=== PATIENT | female | born 1970 | race Caucasian/White ===

== ENCOUNTER → 2016-11-11 | Outpatient (CLI) | payer BC, MEDICARE ==
[~2016-11-11] MED LIST: ALBU8.5H INH; CEPH-583 PO; CHOL500050 PO; ESTR1PAT33 TOP; FLUT16SP TOP; FLUT1DIS3 ORAL INH; HYDR12.54 PO; LEVO88TA7 PO; LIDO35.4 TOP; OMEP40CA30 PO; OXYC15TA PO; [UNRECOGNIZED DRUG - CODE] PO; [UNRECOGNIZED DRUG - CODE] PO
== END ==
LOC: IMA 12:32
PROVIDERS: ATTEND Orthopaedic Surgery
DX: M81.0 Age-related osteoporosis without current pathological fracture (principal); M85.89 Other specified disorders of bone density and structure, multiple sites; M06.9 Rheumatoid arthritis, unspecified; Z72.0 Tobacco use; Z87.828 Personal history of other (healed) physical injury and trauma; Z90.722 Acquired absence of ovaries, bilateral

== ENCOUNTER 2016-11-29 19:59 | Emergency (ER) | payer BC, MEDICARE ==
[~2016-11-29] VITALS: Ht 170.2 cm; Wt 70.8 kg
--- OUTSIDE RECORDS SUMMARY | 2016-11-29 20:02 | XMS REPORT ---
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 48572118 Problem Osteopenia 733.90 Active 253975047 Problem Postsurgical hypothyroidism E89.0 Active 09615146 Problem Malignant neoplasm of thyroid gland C73 Active 653945605 Assessment Vitamin D deficiency E55.9 Oct, Active 28526867 Problem Premature menopause 256.31 Inactive 729367172 Problem Irritable bowel syndrome 564.1 Inactive 63840754 Problem Other symptoms involving digestive system 787.99 Inactive 336177329 Problem Abnormal feces 787.7 Inactive 781538483 Problem Nonspecific abnormal results of thyroid function study 794.5 Inactive 153276040 Problem Unspecified disorder of stomach and duodenum 537.9 Inactive Problem Other diseases of lung, not elsewhere classified 518.89 Inactive 41258621 ALLERGIES Unknown Allergies SOCIAL HISTORY No smoking Hx information available PLAN OF CARE VITAL SIGNS MEDICATIONS Medication Instructions Dosage Frequency Start Date End Date Duration Status Vitamin D High Potency 1000 UNIT Orally Once a day 1 capsule 24h Oct, 30 day(s) Active RESULTS No Results PROCEDURES No Known procedures IMMUNIZATIONS No Known Immunizations
--- OUTSIDE RECORDS SUMMARY | 2016-11-29 20:02 | XMS REPORT ---
Author Author [facility] Address [address] [id number] Care Team Providers Care Clarification Operator Name Role Phone Mario Ramos Unavailable [phone] PROBLEMS Type Condition ICD9-CM Code SYT15-FT Code Onset Dates Condition Status SNOMED Code Problem Other diseases of lung, not elsewhere classified 518.89 Inactive 79151488 Problem Unspecified constipation 564.00 Inactive 49750814 Problem Unspecified anemia 285.9 Inactive 813658913 Problem Postsurgical hypothyroidism E89.0 Active 96738677 Problem Malignant neoplasm of thyroid gland C73 Active 317008960 Problem Osteopenia 733.90 Active 540766111 Problem Disorder of bone and cartilage, unspecified 733.90 Active 37902232 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 68516904 Problem Vitamin D deficiency E55.9 Active 75616631 Assessment Postsurgical hypothyroidism E89.0 Jul, Active 45728281 Problem Unspecified disorder of stomach and duodenum 537.9 Inactive Problem Irritable bowel syndrome 564.1 Inactive 08598964 Problem Premature menopause 256.31 Inactive 133585201 Problem Other symptoms involving digestive system 787.99 Inactive 866651048 Problem Abnormal feces 787.7 Inactive 568996114 Problem Nonspecific abnormal results of thyroid function study 794.5 Inactive 344525614 ALLERGIES Unknown Allergies SOCIAL HISTORY No smoking Hx information available PLAN OF CARE VITAL SIGNS MEDICATIONS Medication Instructions Dosage Frequency Start Date End Date Duration Status Advair Diskus 250-50 MCG/DOSE Inhalation Twice a day 1 puff 12h Active Caltrate 600 1500 MG Orally Twice a day 1 tablet 12h Active Vitamin D (Ergocalciferol) 50,000 TAKE ONE CAPSULE BY MOUTH TWO TIMES WEEKLY Feb, 30 Active Lorazepam 2 MG Oral Three times daily 1 tablet as needed Active Synthroid 125 MCG Orally Once a day 1 tablet on an empty stomach in the morning 24h 30 days Active Percocet 10-325 MG Oral 2 tabs every 4 hrs as needed 0 Active Estradiol 0.5 MG Orally Once a day 1 tablet 24h Active Lidoderm 5 % Active Omeprazole 20 MG Orally Two times daily 1 capsules Active ProAir HFA 108 (90 Base) MCG/ACT Inhalation every 4 hrs 2 puffs as needed 4h Active Ibuprofen 200 MG Orally Two times daily 3 tablet as needed Active Voltaren 1 % Active RESULTS No Results PROCEDURES No Known procedures IMMUNIZATIONS No Known Immunizations
--- OUTSIDE RECORDS SUMMARY | 2016-11-29 20:02 | XMS REPORT ---
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 91673589 Problem Osteopenia 733.90 Active 829654873 Problem Postsurgical hypothyroidism E89.0 Active 84185197 Problem Malignant neoplasm of thyroid gland C73 Active 705768090 Assessment Vitamin D deficiency E55.9 Oct, Active 30837686 Problem Premature menopause 256.31 Inactive 734182183 Problem Irritable bowel syndrome 564.1 Inactive 41420348 Problem Other symptoms involving digestive system 787.99 Inactive 529553275 Problem Abnormal feces 787.7 Inactive 562400413 Problem Nonspecific abnormal results of thyroid function study 794.5 Inactive 882831471 Problem Unspecified disorder of stomach and duodenum 537.9 Inactive Problem Other diseases of lung, not elsewhere classified 518.89 Inactive 79992564 ALLERGIES Unknown Allergies SOCIAL HISTORY No smoking Hx information available PLAN OF CARE Activity Details Pending Test VITAMIN D, [address], [place] [address] ,Reason: VITAL SIGNS MEDICATIONS Unknown Medications RESULTS No Results PROCEDURES Procedure Date Ordered Related Diagnosis Body Site ASSAY OF VITAMIN D October 30, 2016 IMMUNIZATIONS No Known Immunizations
--- OUTSIDE RECORDS SUMMARY | 2016-11-29 20:03 | XMS REPORT ---
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 93592875 Problem Osteopenia 733.90 Active 842783129 Problem Postsurgical hypothyroidism E89.0 Active 14725040 Problem Malignant neoplasm of thyroid gland C73 Active 040644194 Assessment Thyroid nodule E04.1 Oct, Active 594730008 Problem Premature menopause 256.31 Inactive 890837235 Assessment Vitamin D deficiency, unspecified E55.9 Oct, Active 56240260 Problem Irritable bowel syndrome 564.1 Inactive 77242945 Problem Other symptoms involving digestive system 787.99 Inactive 605385453 Problem Abnormal feces 787.7 Inactive 981685407 Problem Nonspecific abnormal results of thyroid function study 794.5 Inactive 644245788 Problem Unspecified disorder of stomach and duodenum 537.9 Inactive Problem Other diseases of lung, not elsewhere classified 518.89 Inactive 02645460 ALLERGIES Unknown Allergies SOCIAL HISTORY No smoking Hx information available PLAN OF CARE Activity Details Pending Test T4, FREE 07061 Pending Test TSH 55820 ,Reason: VITAL SIGNS MEDICATIONS Unknown Medications RESULTS No Results PROCEDURES Procedure Date Ordered Related Diagnosis Body Site ASSAY THYROID STIM HORMONE October 30, 2016 ASSAY OF FREE THYROXINE October 30, 2016 IMMUNIZATIONS No Known Immunizations
--- OUTSIDE RECORDS SUMMARY | 2016-11-29 20:03 | XMS REPORT ---
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 95276233 Problem Osteopenia 733.90 Active 928791203 Problem Postsurgical hypothyroidism E89.0 Active 35086366 Problem Malignant neoplasm of thyroid gland C73 Active 234576790 Problem Premature menopause 256.31 Inactive 220099102 Problem Irritable bowel syndrome 564.1 Inactive 07321214 Problem Other symptoms involving digestive system 787.99 Inactive 860806221 Problem Abnormal feces 787.7 Inactive 554190256 Problem Nonspecific abnormal results of thyroid function study 794.5 Inactive 453086507 Problem Unspecified disorder of stomach and duodenum 537.9 Inactive Problem Other diseases of lung, not elsewhere classified 518.89 Inactive 76125775 ALLERGIES Unknown Allergies SOCIAL HISTORY No smoking Hx information available PLAN OF CARE VITAL SIGNS MEDICATIONS Unknown Medications RESULTS No Results PROCEDURES No Known procedures IMMUNIZATIONS No Known Immunizations
--- OUTSIDE RECORDS SUMMARY | 2016-11-29 20:03 | XMS REPORT ---
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 54347698 Problem Osteopenia 733.90 Active 298109313 Problem Postsurgical hypothyroidism E89.0 Active 56236377 Problem Malignant neoplasm of thyroid gland C73 Active 175438824 Assessment Vitamin D deficiency E55.9 Oct, Active 42595888 Problem Premature menopause 256.31 Inactive 166226723 Problem Irritable bowel syndrome 564.1 Inactive 22647670 Problem Other symptoms involving digestive system 787.99 Inactive 615551336 Problem Abnormal feces 787.7 Inactive 377463241 Problem Nonspecific abnormal results of thyroid function study 794.5 Inactive 117992745 Problem Unspecified disorder of stomach and duodenum 537.9 Inactive Problem Other diseases of lung, not elsewhere classified 518.89 Inactive 01947968 ALLERGIES Unknown Allergies SOCIAL HISTORY No smoking Hx information available PLAN OF CARE VITAL SIGNS MEDICATIONS Medication Instructions Dosage Frequency Start Date End Date Duration Status ProAir HFA 108 (90 Base) MCG/ACT Inhalation every 4 hrs 2 puffs as needed 4h Active Levothyroxine Sodium 150 MCG (Prior Auth: Rx Ref#:[id number]) 30 Active Voltaren 1 % Active Advair Diskus 250-50 MCG/DOSE Inhalation Twice a day 1 puff 12h Active Ranitidine HCl 150 MG (Prior Auth: Rx Ref#:[id number]) 30 Active Cephalexin 500 MG (Prior Auth: Rx Ref#:[id number]) 7 Active Lorazepam 2 MG Oral Three times daily 1 tablet as needed Active Ibuprofen 200 MG Orally Two times daily 3 tablet as needed Active Oxycodone HCl 15 MG (Schedule II Drug) (Prior Auth: Rx Ref#:[id number]) 30 Active Ondansetron 4 MG (Prior Auth: Rx Ref#:[id number]) 2 Active Alprazolam 1 MG (Schedule IV Drug) (Prior Auth: Rx Ref#:[id number]) 30 Active Estradiol 0.5 MG Orally Once a day 1 tablet 24h Active Vitamin D (Ergocalciferol) 40508 unit Orally two times weekly 1 capsule Feb, 30 Active Vitamin D High Potency 1000 UNIT Orally Once a day 1 capsule 24h Oct, 30 day(s) Active RESULTS No Results PROCEDURES No Known procedures IMMUNIZATIONS No Known Immunizations
--- OUTSIDE RECORDS SUMMARY | 2016-11-29 20:03 | XMS REPORT ---
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 17701899 Problem Osteopenia 733.90 Active 617966515 Problem Postsurgical hypothyroidism E89.0 Active 18656294 Problem Malignant neoplasm of thyroid gland C73 Active 804741025 Assessment Thyroid nodule E04.1 Oct, Active 191511215 Problem Premature menopause 256.31 Inactive 836434091 Problem Irritable bowel syndrome 564.1 Inactive 87173396 Problem Other symptoms involving digestive system 787.99 Inactive 453293164 Problem Abnormal feces 787.7 Inactive 633207093 Problem Nonspecific abnormal results of thyroid function study 794.5 Inactive 626380088 Problem Unspecified disorder of stomach and duodenum 537.9 Inactive Problem Other diseases of lung, not elsewhere classified 518.89 Inactive 55841769 ALLERGIES Unknown Allergies SOCIAL HISTORY No smoking Hx information available PLAN OF CARE Activity Details Pending Test T4, FREE 97535 Pending Test T3, [place] [address] Pending Test TSH 99276 prn,Reason: VITAL SIGNS MEDICATIONS Medication Instructions Dosage Frequency Start Date End Date Duration Status Alprazolam 1 MG (Schedule IV Drug) (Prior Auth: Rx Ref#:[id number]) 30 Active ProAir HFA 108 (90 Base) MCG/ACT Inhalation every 4 hrs 2 puffs as needed 4h Active Cephalexin 500 MG (Prior Auth: Rx Ref#:[id number]) 7 Active Ranitidine HCl 150 MG (Prior Auth: Rx Ref#:[id number]) 30 Active Estradiol 0.5 MG Orally Once a day 1 tablet 24h Active Levothyroxine Sodium 150 MCG (Prior Auth: Rx Ref#:[id number]) 30 Active Oxycodone HCl 15 MG (Schedule II Drug) (Prior Auth: Rx Ref#:[id number]) 30 Active Lorazepam 2 MG Oral Three times daily 1 tablet as needed Active Vitamin D (Ergocalciferol) 71281 unit Orally two times weekly 1 capsule Feb, 30 Active Advair Diskus 250-50 MCG/DOSE Inhalation Twice a day 1 puff 12h Active Voltaren 1 % Active Vitamin D High Potency 1000 UNIT Orally Once a day 1 capsule 24h Oct, 30 day(s) Active Ondansetron 4 MG (Prior Auth: Rx Ref#:[id number]) 2 Active Ibuprofen 200 MG Orally Two times daily 3 tablet as needed Active RESULTS No Results PROCEDURES Procedure Date Ordered Related Diagnosis Body Site ASSAY OF FREE THYROXINE November 11, 2016 ASSAY, TRIIODOTHYRONINE (T3) November 11, 2016 ASSAY THYROID STIM HORMONE November 11, 2016 IMMUNIZATIONS No Known Immunizations
--- OUTSIDE RECORDS SUMMARY | 2016-11-29 20:03 | XMS REPORT ---
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 48391753 Problem Osteopenia 733.90 Active 368637419 Problem Postsurgical hypothyroidism E89.0 Active 27459638 Problem Malignant neoplasm of thyroid gland C73 Active 515886583 Assessment Vitamin D deficiency E55.9 Oct, Active 41790326 Problem Premature menopause 256.31 Inactive 299135952 Problem Irritable bowel syndrome 564.1 Inactive 40129468 Problem Other symptoms involving digestive system 787.99 Inactive 701407515 Problem Abnormal feces 787.7 Inactive 269250923 Problem Nonspecific abnormal results of thyroid function study 794.5 Inactive 161742860 Problem Unspecified disorder of stomach and duodenum 537.9 Inactive Problem Other diseases of lung, not elsewhere classified 518.89 Inactive 08259112 ALLERGIES Unknown Allergies SOCIAL HISTORY No smoking Hx information available PLAN OF CARE VITAL SIGNS MEDICATIONS Medication Instructions Dosage Frequency Start Date End Date Duration Status Vitamin D High Potency 1000 UNIT Orally Once a day 1 capsule 24h Oct, 30 day(s) Active RESULTS No Results PROCEDURES No Known procedures IMMUNIZATIONS No Known Immunizations
[2016-11-29 20:05] VITALS: Ht 170.2 cm; Wt 70.8 kg
--- NOTE | 2016-11-29 20:12 | ERPDOC ---
Departure Disposition Decision Date: Nov 29, 2016 Disposition Decision Time: 21:21 Disposition: 01 DISCHARGED HOME, SELF-CARE Impression Impression Impression: Primary Impression: Lower leg edema Severity: Moderate Condition: Improved Seen By: Physician only Referrals: DELMI RECINOS DO (Family) Patient Instructions: Edema (ED) Problems/Meds/Labs Reviewed?: Yes Medications reviewed and manag: Yes Additional Instructions: Lasix 20 mg, one tablet daily for 5 days Follow-up with your primary doctor or your oncologist Follow up care ordered?: Yes Mental Status: Alert Scripts Furosemide (Lasix) 20 Mg Tablet 1 TAB PO DAILY, #5 TAB Prov: REESE OLIVARES MD 11/29/16 HPI - Lower Extremity General Chief Complaint: Lower Extremity Pain Stated Complaint: SWOLLEN RT LEG Time Seen by Provider: 20:01 Source: patient, family Exam Limitations: no limitations HPI - Lower Extremity Initial Comments Patient woke up this morning around 9 AM and noticed that her right leg seems slightly swollen. The past several days the patient has noticed occasional brief pains in the posterior right knee. The course of the day the swelling has worsened, and the patient is now having mild diffuse pain throughout the leg, starting in the medial thigh posterior to the knee and then down into the entire calf and pugh. Patient has no history of PE/DVT She does have thyroid cancer and has been undergoing radiation therapy only, no chemotherapy. Patient has no other injuries, or risk factors for DVT or PE Occurred At: home Onset/Timing: Gradual Duration: 12-24 hrs Severity: moderate Method of Injury: unknown Allergies: Coded Allergies: aspirin (Verified Allergy, Unknown, BLISTERS AND INSTANT VOMITING, 02/04/15) lisinopril (Verified Allergy, Unknown, COUGH, 02/04/15) baclofen (Verified Adverse Reaction, Intermediate, N/V, 02/04/15) gabapentin (Verified Adverse Reaction, Intermediate, N/V, 02/04/15) meloxicam (Verified Adverse Reaction, Intermediate, N/V, 02/04/15) morphine (Verified Adverse Reaction, Unknown, HYPOTENSION AND "KEPT ME UP FOR DAYS", 02/04/15) Past History Past Medical History Metabolic: cancer, hypercholesterolemia, hypertension Respiratory: COPD, asthma, pneumonia Musculoskeletal: osteoarthritis Psychological: anxiety, bipolar, depression Surgical History Reproductive/: hysterectomy Joint: knee, other Vaccines Hx Influenza Vaccination: No Hx Pneumococcal Vaccination: Yes (04/2010) Social History Smoking Status: Current every day smoker Does patient use chewing tobac: No Second Hand Exposure: No Substance Use Type: does not use Alcohol Intake: none Sexuality: male partner Record Review Pertinent history updated: Yes Review of Systems Constitutional Constitutional: DENIES: appetite decrease, appetite increase, chills, dizziness , fever, weakness ENMT Ears: DENIES: pain Hearing: DENIES: hearing loss, tinnitus Balance: DENIES: vertigo Mouth/Throat: DENIES: change in swallowing, change in voice, hoarsness, painful swallowing, sore throat Cardiovascular Cardiac: DENIES: chest pain, dyspnea on exertion Rhythm/Rate: DENIES: irregular beat, palpitations, tachycardia Vascular: DENIES: pedal edema Pulmonary Respiratory: DENIES: cough, dyspnea, pleuritic chest pain GI Upper Abdomen: DENIES: dysphagia, heartburn/indigestion, nausea, pain, vomiting Lower Abdomen: DENIES: blood in stool, constipation, diarrhea, pain Musculoskeletal General: pain, tenderness, DENIES: cramps, joint pain, joint swelling, weakness Comments Pain tenderness and swelling from the knee down to the foot on the right side Integumentary Skin: DENIES: rash, sores Neurological General: DENIES: headache, numbness, tingling, vertigo, weakness Psychiatric Psychiatric: DENIES: anxiety, depression, nervousness Physical Exam General General Nourishment: well nourished, well developed, appears stated age, no acute distress General Body Habitus: well groomed Vitals and Pain First Documented Vital Signs Date Time Temp Pulse Resp B/P Pulse Ox O2 Delivery O2 Flow Rate FiO2 11/29/16 20:05 76 18 162/100 97 Room Air Weight: Kilograms: 70.800 Height (feet): 5 Height (inches): 7.00 Triage Pain Scale: RN VS reviewed by Provider: Yes Normal Exams: Head: Normocephalic w/o trauma Eyes: Pupils are PERRLA w/ EOMI, No scleral icterus, irritation, or foreign bodies noted ENMT: No facial trauma, nasal exudates, pharyngeal erythema, or exudates are noted Neck: Full range of motion, without adenopathy, JVD, bruits or thyromegaly Chest/Resp: Clear all glaser, with good airflow, and symmetry bilaterally CV: Regular rate and rhythm, without murmur or gallop, Pulses 2+ all extremities, capillary refill, <2 seconds all ext., no pedal edema noted Abdomen: Bowel sounds positive, soft, non-tender, non-distended, no hepatosplenomegaly, masses or bruits noted Musculoskeletal: No tenderness, or deformity noted, good range of motion, all extremities Integumentary: No rashes, hives, or bruising noted, hair and nails, without abnormality Neurologic: Patient is alert, and oriented, cranial nerves, motor/sensory/ cerebellar, exams w/o gross deficits, to observation Lymphatic (brief) Lymphatic Brief: FOUND: lymphedema (moderate RLE swelling from knee to foot. 2 + pitting, calf measures 2cm larger on right. ), NOT FOUND: adenopathy Progress Results/Orders Orders Procedure Category Date Status Time Iv Lock (Ed Only) EDM 11/29/16 Transmitted 20:06 Us Venous Duplex, US 11/29/16 Taken Lower Ext Rt Cbc W/Auto LAB 11/29/16 Complete Diff-Reflex Manual Cmp - Comprehensive LAB 11/29/16 Complete Metabolic Lab Results Laboratory Tests Test 11/29/16 20:26 White Blood Count 8.0T/MM3 Red Blood Count 4.34M/MM3 Hemoglobin 13.5GM/DL Hematocrit 39.6% Mean Corpuscular Volume 91.2UM3 Mean Corpuscular Hemoglobin 31.1UUG Mean Corpuscular Hemoglobin Concent 34.1GM/DL RDW Standard Deviation 46.2FL Platelet Count 260T/MM3 Mean Platelet Volume 10.3UM3 Immature Granulocyte % (Auto) 0.1% Neutrophils (%) (Auto) 47.6% Lymphocytes (%) (Auto) 38.6% Monocytes (%) (Auto) 10.5% Eosinophils (%) (Auto) 2.2% Basophils (%) (Auto) 1.0% Absolute Immature Granulocyte (auto 0.01T/MM3 Absolute Neutrophils (auto) 3.8T/MM3 Absolute Lymphocytes (auto) 3.1T/MM3 Absolute Monocytes (auto) 0.8T/MM3 Absolute Eosinophils (auto) 0.2T/MM3 Absolute Basophils (auto) 0.1T/MM3 Turbidity < 20 Sodium Level 144MEQ/L Potassium Level 3.7MEQ/L Chloride Level 110MEQ/L Carbon Dioxide Level 24MEQ/L Anion Gap 10MEQ/L Blood Urea Nitrogen 18.0MG/DL Creatinine 0.8MG/DL Glomerular Filtration Rate Calc 77 BUN/Creatinine Ratio 23RATIO Glucose Level 110MG/DL Calculated Osmolality 280MOSM/KG Calcium Level 8.8MG/DL Total Bilirubin 0.60MG/DL Icterus Index < 2 Aspartate Amino Transf (AST/SGOT) 18U/L Alanine Aminotransferase (ALT/SGPT) 23U/L Alkaline Phosphatase 80U/L Total Protein 6.7G/DL Albumin 4.0G/DL Globulin 2.7G/DL Albumin/Globulin Ratio 1.5RATIO Chemistry Specimen Hemolysis < 15 Progress Progress Declines pain medication at this time. CBC, CMP normal Doppler study of the lower extremity shows no evidence of DVT She appears to have nonsymmetric leg swelling secondary to fluid overload. We' ll start Lasix 20 mg daily for 5 days and have the patient follow-up with her outpatient physician REESE OLIVARES MD Nov 29, 2016 20:12
[2016-11-29] MEDS ORDERED: LEVO100T12 PO (20:15)
[2016-11-29] MEDS ORDERED: ESTR1TAB32 PO (20:15)
[2016-11-29] MEDS ORDERED: VITA150T PO (20:18)
[2016-11-29] MEDS ORDERED: POTA20TA10 PO ×2 (20:18→20:49)
--- NOTE | 2016-11-29 20:30 | NUR ---
CALF MEASUREMENT R 15" L 14.5"
[2016-11-29] MEDS ORDERED: CALC600T12 PO (20:44)
[2016-11-29] MEDS ORDERED: LEVO150T11 PO (20:46)
[2016-11-29] MEDS ORDERED: ERGO500044 PO (20:46)
[2016-11-29 20:49] LABS: ALBUMIN/GLOBULIN RATIO 1.5 RATIO (1.1-2.2); ALKALINE PHOSPHATASE 80 U/L (38-126); ALT (SGPT) 23 U/L (9-52); ANION GAP 10 MEQ/L (5-15); AST (SGOT) 18 U/L (14-36); BUN/CREATININE RATIO 23 RATIO (6-26); CALCIUM 8.8 MG/DL (8.4-10.2); CHLORIDE 110 MEQ/L (98-107); CO2 - CARBON DIOXIDE 24 MEQ/L (22-30); CREATININE 0.8 MG/DL (0.7-1.2); GLOMERULAR FILTRATION RATE 77; GLUCOSE 110 MG/DL (65-110); POTASSIUM 3.7 MEQ/L (3.6-5); SODIUM 144 MEQ/L (134-144); TOTAL PROTEIN 6.7 G/DL (6.3-8.2)
[2016-11-29] MEDS ORDERED: RANI150T7 PO (20:49)
[2016-11-29] MEDS ORDERED: IPRA3AMP AEROSOL (20:49)
[2016-11-29] MEDS ORDERED: GABA-338 PO (20:49)
[2016-11-29] MEDS ORDERED: IBUP-1547 PO (20:49)
[2016-11-29] MEDS ORDERED: ALPR1TAB7 PO (20:49)
[2016-11-29] MEDS ORDERED: CALC-946 PO (20:50)
[2016-11-29 21:04] LABS: BASOPHILS # (AUTO) 0.1 T/MM3 (0-0.2); EOSINOPHILS # (AUTO) 0.2 T/MM3 (0-0.5); EOSINOPHILS % (AUTO) 2.2 % (0-4); HCT - HEMATOCRIT 39.6 % (36-46); HGB - HEMOGLOBIN 13.5 GM/DL (12-16); IMMATURE GRANULOCYTE # (AUTO) 0.01 T/MM3 (0.00-0.03); IMMATURE GRANULOCYTE % (AUTO) 0.1 % (0.0-0.5); LYMPHOCYTES # (AUTO) 3.1 T/MM3 (1-4.8); LYMPHOCYTES % (AUTO) 38.6 % (23-45); MEAN CORPUSCULAR HGB 31.1 UUG (26-34); MEAN CORPUSCULAR HGB CONC(MCHC 34.1 GM/DL (31-37); MEAN CORPUSCULAR VOLUME 91.2 UM3 (80-100); MEAN PLATELET VOLUME 10.3 UM3 (9.4-12.4); MONOCYTES # (AUTO) 0.8 T/MM3 (0-0.8); MONOCYTES % (AUTO) 10.5 % (0-9.0); NEUTROPHILS #(AUTO)-ABSOLUTE 3.8 T/MM3 (1.8-7.7); NEUTROPHILS % (AUTO) 47.6 % (33-66); RED BLOOD COUNT 4.34 M/MM3 (4.00-5.20)
[2016-11-29] MEDS ORDERED: FURO-154 PO (21:22)
[2016-11-29] MEDS ORDERED: FUROSEMIDE 20 MG/2 ML INJECTION IV ONE (21:30)
[2016-11-29 21:35] VITALS: BP 135/98; PULSE 76; RESP 18; O2SAT 94
--- NOTE | 2016-11-30 07:54 | DI ---
Indication: ITS.REASON: right LE swelling and pain for 1 day PROCEDURE: US VENOUS DUPLEX, LOWER EXT RT: Encounter: Initial Comparison: None Technique: Color Doppler duplex and grayscale sonographic imaging of the right lower extremity was performed. Findings: There is no evidence for acute deep venous thrombosis in the right thigh. Specifically, serial graded compression was performed from the inguinal ligament to the popliteal bifurcation, on the right thigh, demonstrating appropriate compressibility of the deep venous system. In addition, color and pulsed Doppler demonstrate appropriate spontaneous flow, variation with respiration, and augmentation with calf compression. At the ankle, normal flow is identified in the posterior tibial veins; these vessels are also normal in caliber. Impression: No evidence of acute DVT in the right lower limb. There is a preliminary report by [facility]. .
== END 2016-11-29 21:35 | disposition home or self-care (01) ==
LOC: ED 19:59
DX: R60.0 Localized edema (principal)
CPT/HCPCS: 80053; 85025; 93971; 96374; 99284; J1940

== ENCOUNTER → 2016-11-30 | Outpatient (CLI) | payer BC, MEDICARE ==
[~2016-11-30] MED LIST changes: +ALPR1TAB7 PO; +CALC-946 PO; +CALC600T12 PO; -CEPH-583 PO; -CHOL500050 PO; +ERGO500044 PO; -ESTR1PAT33 TOP; +ESTR1TAB32 PO; -FLUT16SP TOP; +FURO-154 PO; +GABA-338 PO; -HYDR12.54 PO; +IBUP-1547 PO; +IOHEXOL 350 MG/ML 75ml INJECTION ONE; +IPRA3AMP AEROSOL; +LEVO150T11 PO; -LEVO88TA7 PO; -LIDO35.4 TOP; +NORMAL SALINE 100 ML ONE; +POTA20TA10 PO; +RANI150T7 PO; +SALINE FLUSH 10ml SYRINGE ONE; +VITA150T PO; -[UNRECOGNIZED DRUG - CODE] PO; -[UNRECOGNIZED DRUG - CODE] PO
--- NOTE | 2016-11-30 17:04 | DI ---
Indication: ITS.REASON: R06.02 SHORTNESS OF BREATH; R07.89; R22.40 PROCEDURE: CTA PULMONARY EMBOLI: Encounter: Initial Comparison: Chest CT dated January 31, 2014 Technique: Axial CT pulmonary angiographic phase images were performed through the chest after the administration of intravenous contrast. Coronal and Sagittal MIP reconstructed images were created and reviewed. Automated Exposure Control and Iterative Reconstruction dose reducing techniques were utilized. Contrast: Omnipaque 350 62 mL Findings: Pulmonary arteries: Exam is diagnostic to the subsegmental pulmonary arterial level. No filling defects identified to suggest a pulmonary embolus. Other findings: No pneumothorax. Subpleural 7 mm groundglass type nodule in the right lower lobe on image #40. This is unchanged from the comparison. Scattered areas of air trapping in the mid to lower lung glaser. Probable intrapulmonary lymph node along the inferior aspect of the right minor fissure. There were also two small 5 mm left lower lobe nodules which are unchanged since 2014. No axillary or mediastinal lymphadenopathy. Heart size is normal. The upper abdomen shows no acute findings. Impression: No pulmonary embolus or acute intrathoracic disease process seen. .
== END ==
LOC: IMA 15:10
PROVIDERS: ATTEND Family Medicine
DX: R06.02 Shortness of breath (principal); R07.89 Other chest pain
CPT/HCPCS: 71275; J7050; Q9967

== ENCOUNTER → 2016-12-22 | Outpatient (CLI) | payer BC, MEDICARE ==
[~2016-12-22] MED LIST changes: -IOHEXOL 350 MG/ML 75ml INJECTION ONE; -NORMAL SALINE 100 ML ONE; -SALINE FLUSH 10ml SYRINGE ONE
== END ==
LOC: WC.BC 12:19
DX: Z12.31 Encounter for screening mammogram for malignant neoplasm of breast (principal); N64.59 Other signs and symptoms in breast; Z80.3 Family history of malignant neoplasm of breast
CPT/HCPCS: 77063; G0202

== ENCOUNTER → 2016-12-28 | Outpatient (CLI) | payer BC, MEDICARE ==
[~2016-12-28] MED LIST changes: +GADOBUTROL 10mMol/10ml INJECTION IV ONE; +SALINE FLUSH 10ml SYRINGE ONE
--- NOTE | 2016-12-28 11:00 | DI ---
EXAM: MRI THORACIC SPINE W/WO CONTRA DATE: 12/28/2016 12:00 AM ENCOUNTER: Initial INDICATION: ITS.REASON: CERVICAL NEURITIS, THORACIC NEURITIS, HISTORY OF THYROID CA, history of Pichardo's sarcoma, left shoulder "knots", right arm/finger numbness, right hand numbness/tingling COMPARISON: Concurrent cervical spine MRI, pulmonary CT angiogram 11/30/2016, whole body bone scan 12/21/2014, chest CT 01/31/2014, lumbar spine MRI 06/01/2013 TECHNIQUE: Multi-planar multi-weighted magnetic resonance imaging of the thoracic spine was performed with and without intravenous contrast using the standard thoracic spine protocol. CONTRAST: 8.5 mL Multihance. FINDINGS: No acute fracture. Normal kyphosis of the thoracic spine is maintained. No significant spondylolisthesis. Mild multilevel degenerative disc disease with small Schmorl's node deformities. No significant disc bulging, spinal canal stenosis, or neural foraminal narrowing. Scattered intraosseous hemangiomas. No other suspicious marrow replacing process or abnormal enhancing osseous lesions. The thoracic cord is normal in size and signal. No abnormal foci of enhancement. Limited views of the thorax and abdomen are unremarkable. IMPRESSION: 1. Mild multilevel degenerative disc disease with small Schmorl's node deformities however no significant disc bulging, spinal canal stenosis, or neural foraminal narrowing. 2. No evidence of metastatic disease. .
--- NOTE | 2016-12-28 11:08 | DI ---
EXAM: MRI CERVICAL SPINE W/WO CONTRA DATE: 12/28/2016 12:00 AM ENCOUNTER: Initial INDICATION: ITS.REASON: CERVICAL NEURITIS, THORACIC NEURITIS, HISTORY OF THYROID CA, history of Pichardo's sarcoma, left shoulder "knots", right arm/finger numbness, right hand numbness/tingling COMPARISON: Concurrent thoracic spine MRI, prior cervical spine MRI 09/17/2015 TECHNIQUE: Multiplanar multi-weighted magnetic resonance imaging of the cervical spine was performed without and with intravenous contrast using the standard cervical spine protocol. CONTRAST: 8.5 mL Multihance. FINDINGS: Limited views of the brain, posterior fossa, and brainstem are normal. Normal signal voids are present in the vertebral arteries. No acute fracture. Lordosis of the cervical spine is maintained. No significant spondylolisthesis. No marrow replacing process. The intervertebral disc spaces are maintained. No significant disc bulging, spinal canal stenosis, or neural foraminal narrowing. The cervical cord is normal in size and signal. No abnormal foci of postcontrast enhancement. The visualized aerodigestive tract is normal. No pathologic cervical lymphadenopathy by size criteria. IMPRESSION: Normal MRI of the cervical spine without disc bulging, spinal canal stenosis, neural foraminal narrowing, or abnormal enhancement to suggest metastatic disease. .
== END ==
LOC: IMA 08:40
PROVIDERS: ATTEND Anesthesiology
DX: M51.34 Other intervertebral disc degeneration, thoracic region (principal); M54.14 Radiculopathy, thoracic region; Z85.850 Personal history of malignant neoplasm of thyroid; M54.12 Radiculopathy, cervical region
CPT/HCPCS: 72156; 72157; A9585